=== PATIENT | male | born 1975 | race Caucasian/White ===

== ENCOUNTER 2021-08-12 09:45 | Inpatient (IN) | payer MEDICAID, OTHER ==
[~2021-08-12] VITALS: Ht 177.8 cm; Wt 93.1 kg
--- NOTE | 2021-08-12 10:03 | NUR ---
DR Chavez at the bedside for MSE. Pt states he is living in [facility] for homeless. Pt states had a positive COVID test 2 weeks ago.
[2021-08-12] MEDS ORDERED: CEFTRIAXONE 1 G in IV DEXTROSE 5% 50 ML IV ONE (10:15)
[2021-08-12] MEDS ORDERED: AZITHROMYCIN IV 500 MG in IV DEXTROSE 5% 250 ML IV ONE (10:15)
[2021-08-12] MEDS ORDERED: DEXAMETHASONE SOD PHOSPHATE 4 MG INJ IV ONE (10:15)
[2021-08-12 10:43] LABS: HEMATOCRIT 44.2 % (36.7-47.1); MEAN CORPUSCULAR VOLUME 87.1 fL (73.0-96.2); PLATELET COUNT (AUTO) 256 K/uL (152-348)
[2021-08-12 10:52] LABS: POTASSIUM 4.2 mmol/L (3.5-5.1)
[2021-08-12 11:06] LABS: BILIRUBIN,DIRECT 0.3 mg/dL (0.0-0.2); MAGNESIUM 2.3 mg/dL (1.8-2.4); PHOSPHOROUS 3.4 mg/dL (2.5-4.9); TOTAL PROTEIN, SERUM 7.5 g/dL (6.4-8.2)
[2021-08-12] MEDS ORDERED: IV NS 1000 ML 1,000 ML IV ONE (11:15)
[2021-08-12] MEDS ORDERED: ENOXAPARIN SODIUM 80 MG/0.8 ML DISP.SYRIN SQ ONE (11:30)
[2021-08-12] MEDS ORDERED: DEXAMETHASONE SOD PHOSPHATE 10 MG INJ ONE (11:31)
[2021-08-12] MEDS ORDERED: AZITHROMYCIN 500MG/ D5W 250ML IVPB **ER PYXIS ONLY IV ONE (11:31)
[2021-08-12] MEDS ORDERED: CEFTRIAXONE /D5W 50ML IVPB **ER PYXIS IV ONE (11:31)
[2021-08-12] MEDS ORDERED: ENOXAPARIN SODIUM 100 MG/ML DISP.SYRIN SQ ONE (11:45)
--- NOTE | 2021-08-12 13:26 | NUR ---
Lunch provided, pt ate w/ great appetite. VSS, no c/o pain/discomfort.
--- NOTE | 2021-08-12 14:36 | NUR ---
Patient is resting comfortably in bed with eyes closed, NAD noted.
--- NOTE | 2021-08-12 16:01 | NUR ---
RECEIVED PT FROM ER VIA WHEELCHAIR. UNDER THE CARE OF DR. KINCAID. DX: COVID PNA. BELONGING LIST DONE. ADMISSION PROCESS AND CARE PLAN INITIATED. PT ON 4L NASAL CANNULA. SAFETY AND COMFORT PROVIDED. WILL CONTINUE TO MONITOR.
[2021-08-12 16:24] VITALS: BP 133/84
[2021-08-12] MEDS ORDERED: ONDANSETRON 4 MG/2 ML VIAL IV PRN (16:30)
[2021-08-12] MEDS ORDERED: HYDROCODONE/APAP 5-325MG TABLET PO PRN (16:30)
[2021-08-12] MEDS ORDERED: MAGNESIUM HYDROXIDE 30 ML LIQUID UDC PO PRN (16:30)
[2021-08-12] MEDS ORDERED: ALBUTEROL SULFATE 8 GM HFA.AER.AD IH PRN (16:30)
--- NOTE | 2021-08-12 18:09 | NUR ---
PT IN NO ACUTE RESPIRATORY DISTRESS.PT ON 4L NASAL CANNULA. PT CAN MAKE HIS NEEDS KNOWN. IV INTACT. SAFETY AND COMFORT PROVIDED. WILL CONTINUE TO MONITOR.
[2021-08-12 20:00] VITALS: BP 112/79
[2021-08-12] MEDS: DEXAMETHASONE SOD PHOSPHATE 4 MG INJ IV SCH (20:22)
[2021-08-13] VITALS (8 sets, daily range): BP systolic 111–158; BP diastolic 60–90
[2021-08-13] MEDS: PANTOPRAZOLE SODIUM 40 MG TABLET.DR PO SCH (06:09)
--- NOTE | 2021-08-13 06:45 | NUR ---
Patient COVID 19 with PNA, no sob, no acute distress noted, will continue to monitor for patient breathing.
[2021-08-13 07:42] LABS: MEAN CORPUSCULAR HEMOGLOBIN 30.6 uug (23.8-33.4); MEAN CORPUSCULAR VOLUME 85.3 fL (73.0-96.2); PLATELET COUNT (AUTO) 297 K/uL (152-348)
[2021-08-13 08:10] LABS: BILIRUBIN,DIRECT 0.2 mg/dL (0.0-0.2); BILIRUBIN,TOTAL 0.5 mg/dL (0.2-1.0); MAGNESIUM 2.3 mg/dL (1.8-2.4); PHOSPHOROUS 2.3 mg/dL (2.5-4.9)
[2021-08-13] MEDS: DEXAMETHASONE SOD PHOSPHATE 4 MG INJ IV SCH ×2 (08:20→20:19)
[2021-08-13] MEDS: ASCORBIC ACID 500 MG TABLET PO SCH (08:20)
[2021-08-13] MEDS: ENOXAPARIN SODIUM 40 MG/0.4 ML DISP.SYRIN SQ SCH (08:20)
[2021-08-13] MEDS: CHOLECALCIFEROL 1,000 UNIT TABLET PO SCH (08:20)
[2021-08-13 09:58] LABS: CREATININE 0.9 mg/dL (0.6-1.3); POTASSIUM 4.4 mmol/L (3.5-5.1)
[2021-08-13] MEDS: AZITHROMYCIN IV 500 MG in IV DEXTROSE 5% 250 ML IV SCH (11:51)
[2021-08-13] MEDS ORDERED: SWABABLE VALVE TRANSFER SET EA MC ONE (13:38)
[2021-08-13] MEDS ORDERED: IV NORMAL SALINE 250 ML IV ONE (13:38)
[2021-08-13] MEDS ORDERED: IOHEXOL 350 100 ML INFUS..BTL ONE (13:38)
[2021-08-13] MEDS ORDERED: REMDESIVIR (CHARGED) 200 MG in IV NORMAL SALINE 210 ML IV ONE (14:00)
[2021-08-13] MEDS ORDERED: NEUTRA PHOS PACKET PO ONE (16:00)
[2021-08-13] MEDS ORDERED: LOPERAMIDE HCL 2 MG CAPSULE PO PRN (17:00)
--- NOTE | 2021-08-13 18:30 | NUR ---
Patient is alert/orientedx4, denies pain during the shift. MD ordered CTA Chest Angio, consent obtained, procedure done. Collected sputum sample for culture w/ gram stain as ordered, awaiting result. No distress identified. Frequent visual check done. Kept call light within reach. Assisted with ADLs. All needs attended. Kept environment safe. All due meds given as ordered. Will endorse to the next shift for continuity of care.
[2021-08-14 00:07] VITALS: BP 114/74
[2021-08-14 04:00] VITALS: BP 126/83
[2021-08-14 04:20] VITALS: BP 126/83
[2021-08-14] MEDS: PANTOPRAZOLE SODIUM 40 MG TABLET.DR PO SCH (06:03)
[2021-08-14 07:11] LABS: HEMATOCRIT 40.4 % (36.7-47.1); MEAN CORPUSCULAR HEMOGLOBIN 29.9 uug (23.8-33.4); MEAN CORPUSCULAR VOLUME 86.3 fL (73.0-96.2); PLATELET COUNT (AUTO) 362 K/uL (152-348)
[2021-08-14 07:29] LABS: BILIRUBIN,DIRECT 0.2 mg/dL (0.0-0.2); BILIRUBIN,TOTAL 0.5 mg/dL (0.2-1.0); CREATININE 0.8 mg/dL (0.6-1.3); MAGNESIUM 2.2 mg/dL (1.8-2.4); PHOSPHOROUS 3.7 mg/dL (2.5-4.9); TOTAL PROTEIN, SERUM 6.6 g/dL (6.4-8.2)
--- NOTE | 2021-08-14 08:00 | NUR ---
AWAKE ALERT AND ORIENTED X3 NO SS OF PAIN OR RESPIRATORY DISTRESS SATURATING 95% ON 4L NC SITTING COMFORTABLY SIDE OF BED. SR ON MONITOR
[2021-08-14] MEDS: ASCORBIC ACID 500 MG TABLET PO SCH (08:16)
[2021-08-14] MEDS: ACETAMINOPHEN 325 MG TABLET PO PRN ×2 (08:16→20:37)
[2021-08-14] MEDS: DEXAMETHASONE SOD PHOSPHATE 4 MG INJ IV SCH ×2 (08:16→20:37)
[2021-08-14] MEDS: CHOLECALCIFEROL 1,000 UNIT TABLET PO SCH (08:16)
[2021-08-14] MEDS: ENOXAPARIN SODIUM 40 MG/0.4 ML DISP.SYRIN SQ SCH (08:17)
--- NOTE | 2021-08-14 11:18 | NUR ---
RESTING COMFORTABLY, NO ACUTE CHANGE FROM MORNING ASSESSMENT SR ON MONITOR
[2021-08-14] MEDS: AZITHROMYCIN IV 500 MG in IV DEXTROSE 5% 250 ML IV SCH (11:56)
[2021-08-14 12:00] VITALS: BP 119/76
[2021-08-14] MEDS: REMDESIVIR (CHARGED) 100 MG in IV NORMAL SALINE 100 ML IV SCH (13:29)
[2021-08-14 16:00] VITALS: BP 133/82
[2021-08-14 20:20] VITALS: BP 123/69
--- NOTE | 2021-08-14 20:25 | NUR ---
Received patient sitting up on the side of the bed. AAOx4. Denies any pain. Complain of SOB. O2 sat fluctuating between 86-88%. Titrated O2 to 6LPM via NC, O2 sat up to 92%. Continue to monitor breathing. IV site on right wrist area intact and patent. COVID precaution observed. Other needs assessed and attended to. Instructed to call this nurse if he starts feeling SOB again and states understanding.
--- NOTE | 2021-08-14 20:52 | NUR ---
Patient complain of SOB again. O2 sat fluctuating between 87-90% at 6LPM of O2 via NC. Change to simple mask at 10LPM and given Ventolin Hfa Inhaler 1 puff per order. O2 saturation went up to 94%. Patient felt relief. HOB kept elevated. Other due med also given. Continue to monitor.
--- NOTE | 2021-08-14 21:25 | NUR ---
Patient remains AAOx4. Denies any SOB at this time. Remains on O2 at 10LPM via simple mask. Sinus jaren on tele at 46/min. Continue to monitor.
--- NOTE | 2021-08-14 21:40 | NUR ---
Informed ELECTRONIC ENGRAVER Nash regarding patient condition and obtain order for O2 at 10LPM via simple mask to keep O2 saturation >94%. Order noted. /Cody made aware.
--- NOTE | 2021-08-15 | NUR ---
Noted patient removing his simple mask. No signs of distress. Place back on O2 at 4LPM via NC. O2 sat at 96%. Denies any SOB when asked. Sinus Amadeo on tele at 45/min. Appears comfortable. Continue to monitor.
[2021-08-15 00:15] VITALS: BP 134/81
[2021-08-15 04:20] VITALS: BP 146/84
--- NOTE | 2021-08-15 05:59 | NUR ---
AAOx4. Denies any pain or SOB. O2 sat at 97% on O2 at 4LPM via NC. SB on tele at 52/min. No coughing noted. Afebrile. IV site on right wrist area remains intact and patent. COVID precaution maintained. Needs attended to and met. Safety measure maintained and call hayden within reached.
[2021-08-15] MEDS: PANTOPRAZOLE SODIUM 40 MG TABLET.DR PO SCH (06:10)
[2021-08-15 06:38] LABS: HEMATOCRIT 39.3 % (36.7-47.1); MEAN CORPUSCULAR HEMOGLOBIN 30.6 uug (23.8-33.4); MEAN CORPUSCULAR VOLUME 86.1 fL (73.0-96.2); PLATELET COUNT (AUTO) 406 K/uL (152-348)
[2021-08-15 07:07] LABS: BILIRUBIN,DIRECT 0.2 mg/dL (0.0-0.2); BILIRUBIN,TOTAL 0.5 mg/dL (0.2-1.0); CREATININE 0.7 mg/dL (0.6-1.3); MAGNESIUM 2.1 mg/dL (1.8-2.4); PHOSPHOROUS 3.4 mg/dL (2.5-4.9); POTASSIUM 3.9 mmol/L (3.5-5.1); TOTAL PROTEIN, SERUM 6.6 g/dL (6.4-8.2)
--- NOTE | 2021-08-15 07:30 | NUR ---
AWAKE ALERT AND ORIENTED X3 NO SS OF PAIN OR DISTRESS WITH 4L NC SATURATING 93%. SR,SB ON MONITOR
[2021-08-15] MEDS: DEXAMETHASONE SOD PHOSPHATE 4 MG INJ IV SCH ×2 (08:15→20:09)
[2021-08-15] MEDS: ACETAMINOPHEN 325 MG TABLET PO PRN (08:15)
[2021-08-15] MEDS: CHOLECALCIFEROL 1,000 UNIT TABLET PO SCH (08:15)
[2021-08-15] MEDS: ASCORBIC ACID 500 MG TABLET PO SCH (08:15)
[2021-08-15] MEDS: ENOXAPARIN SODIUM 40 MG/0.4 ML DISP.SYRIN SQ SCH (08:16)
[2021-08-15] MEDS: AZITHROMYCIN IV 500 MG in IV DEXTROSE 5% 250 ML IV SCH (11:53)
[2021-08-15 12:00] VITALS: BP 131/86
[2021-08-15] MEDS: REMDESIVIR (CHARGED) 100 MG in IV NORMAL SALINE 100 ML IV SCH (13:56)
--- NOTE | 2021-08-15 14:35 | NUR ---
CONTINUE TELE MONITORING FOR COVID, TOLERATING 4L WELL SATURATING 93% SITTING MOST OF THE SHIFT SB ON MONITOR
[2021-08-15 16:00] VITALS: BP 125/68
[2021-08-15 20:15] VITALS: BP 134/84
--- NOTE | 2021-08-15 21:08 | NUR ---
Received pt resting in bed. AAO x4. On 4L O2 via NC, saturation of 97%. No acute distress noted. Denies pain/ discomfort. Due med given as ordered. IV site flushed, patent and intact. Safety measures maintained. Call light and personal items within reach. Will continue to monitor.
[2021-08-16 00:05] VITALS: BP 121/68
[2021-08-16 04:20] VITALS: BP 116/75
--- NOTE | 2021-08-16 04:56 | NUR ---
Pt slept comfortably t/o the night. Sinus jaren on tele at 45/ min. No acute distress. No changes during the shift. Will endorse accordingly.
[2021-08-16] MEDS: PANTOPRAZOLE SODIUM 40 MG TABLET.DR PO SCH (06:08)
[2021-08-16 06:40] LABS: HEMATOCRIT 40.4 % (36.7-47.1); MEAN CORPUSCULAR HEMOGLOBIN 30.3 uug (23.8-33.4); MEAN CORPUSCULAR VOLUME 87.5 fL (73.0-96.2); PLATELET COUNT (AUTO) 438 K/uL (152-348)
[2021-08-16 06:57] LABS: ALANINE AMINOTRANSFERASE 80 U/L (16-63); ALKALINE PHOSPHATASE 98 U/L (50-136); ASPARTATE AMINOTRANSFERASE 46 U/L (15-37); BILIRUBIN,DIRECT 0.1 mg/dL (0.0-0.2); BILIRUBIN,TOTAL 0.4 mg/dL (0.2-1.0); CARBON DIOXIDE 26 mmol/L (21-32); CHLORIDE 101 mmol/L (98-107); CREATININE 0.6 mg/dL (0.6-1.3); GLUCOSE 104 mg/dL (74-106); POTASSIUM 4.2 mmol/L (3.5-5.1); TOTAL PROTEIN, SERUM 6.3 g/dL (6.4-8.2); UREA NITROGEN, BLOOD 18 mg/dL (7-18)
[2021-08-16 07:30] VITALS: BP 126/85
--- NOTE | 2021-08-16 07:30 | NUR ---
Pt received to care, awake, alert, no signs of distress. Pt is on 4L O2 on nasal canula, sat 96%. Pt denies pain. Pt is A/Ox4. Iv site is intact
[2021-08-16] MEDS: CHOLECALCIFEROL 1,000 UNIT TABLET PO SCH (09:38)
[2021-08-16] MEDS: ASCORBIC ACID 500 MG TABLET PO SCH (09:38)
[2021-08-16] MEDS: DEXAMETHASONE SOD PHOSPHATE 4 MG INJ IV SCH ×2 (09:38→20:23)
[2021-08-16] MEDS: ENOXAPARIN SODIUM 40 MG/0.4 ML DISP.SYRIN SQ SCH (09:41)
[2021-08-16 11:57] VITALS: BP 124/84
[2021-08-16] MEDS: AZITHROMYCIN IV 500 MG in IV DEXTROSE 5% 250 ML IV SCH (12:10)
[2021-08-16] MEDS: REMDESIVIR (CHARGED) 100 MG in IV NORMAL SALINE 100 ML IV SCH (13:56)
--- NOTE | 2021-08-16 15:30 | NUR ---
PT is saturates 96% on 2l of O2 with nasal canula, denies sob.
[2021-08-16 15:51] VITALS: BP 117/81
--- NOTE | 2021-08-16 18:48 | NUR ---
Pt is resting in bed, O2 canula at 2LPM. No distress noted.
[2021-08-16 20:20] VITALS: BP 114/68
--- NOTE | 2021-08-16 22:24 | NUR ---
Received pt on bed, on continuous O2 at 2L via NC. No acute distress noted. Alert and oriented x4, able to make needs known. Denies pain and discomfort at this time. All needs attended. Will continue to monitor.
[2021-08-17 00:10] VITALS: BP 126/84
[2021-08-17 04:15] VITALS: BP 123/60
[2021-08-17 05:53] LABS: HEMATOCRIT 41.4 % (36.7-47.1); MEAN CORPUSCULAR HEMOGLOBIN 30.7 uug (23.8-33.4); MEAN CORPUSCULAR VOLUME 86.7 fL (73.0-96.2); PLATELET COUNT (AUTO) 449 K/uL (152-348)
[2021-08-17 06:10] LABS: BILIRUBIN,DIRECT 0.2 mg/dL (0.0-0.2); BILIRUBIN,TOTAL 0.5 mg/dL (0.2-1.0); CREATININE 0.7 mg/dL (0.6-1.3); POTASSIUM 4.5 mmol/L (3.5-5.1); TOTAL PROTEIN, SERUM 6.5 g/dL (6.4-8.2)
[2021-08-17] MEDS: PANTOPRAZOLE SODIUM 40 MG TABLET.DR PO SCH (06:19)
--- NOTE | 2021-08-17 06:29 | NUR ---
Pt slept throughout the night, on continuous O2 at 2L via NC saturating 96%. No acute distress noted. Denies pain and discomfort at this time. All needs attended. Call light placed within reach. Frequent visual checks done. Will continue to monitor.
--- NOTE | 2021-08-17 07:30 | NUR ---
Received pt awake alert and oriented times 4, on continuous oxygen at 2L via NC, saturating 96%. No respiratory distress noted able to make needs known. Safety precautions implemented, call light placed within reach. Will continue to monitor.
[2021-08-17] MEDS: DEXAMETHASONE SOD PHOSPHATE 4 MG INJ IV SCH ×2 (08:47→20:30)
[2021-08-17] MEDS: ASCORBIC ACID 500 MG TABLET PO SCH (08:47)
[2021-08-17] MEDS: CHOLECALCIFEROL 1,000 UNIT TABLET PO SCH (08:47)
[2021-08-17] MEDS: ENOXAPARIN SODIUM 40 MG/0.4 ML DISP.SYRIN SQ SCH (08:50)
[2021-08-17 11:54] VITALS: BP 112/74
[2021-08-17] MEDS: REMDESIVIR (CHARGED) 100 MG in IV NORMAL SALINE 100 ML IV SCH (13:57)
[2021-08-17 15:14] VITALS: BP 103/69
--- NOTE | 2021-08-17 18:20 | NUR ---
Patient left resting in bed. No sign of distress noted at this time. Gave all medications as ordered. Patient is currently on room air and saturating at 95%. Safety measures are in place. Will endorse to oncoming nurse.
[2021-08-17 20:32] VITALS: BP 102/71
--- NOTE | 2021-08-17 21:51 | NUR ---
Pt sitting in bed, watching TV, o acute distress noted. Axox4, Denies any pain or discomfort at the moment. No respiratory distress, no SOB noted on RA saturating @ 94-95%.No cough noted. Denies SOB. VSS. On tele sinus jaren @ 40-45/ min, resting comfortably.LFA 20G heplock patent and intact, flushed. All due medications administered and tolerated well.Safety and covid precautions maintained. Call light and all personal item within pt reach. Will continue to monitor throughout the night.
[2021-08-18 00:10] VITALS: BP 103/72
[2021-08-18 04:37] VITALS: BP 110/71
[2021-08-18] MEDS: PANTOPRAZOLE SODIUM 40 MG TABLET.DR PO SCH (05:58)
--- NOTE | 2021-08-18 07:46 | NUR ---
received sitting by the window, no acute distress. denies chest pain or sob. comfortable on room air 95-96%. iv intact. safety measures in place. call light in reach. will continue to monitor.
[2021-08-18] MEDS: DEXAMETHASONE SOD PHOSPHATE 4 MG INJ IV SCH (08:55)
[2021-08-18] MEDS: ENOXAPARIN SODIUM 40 MG/0.4 ML DISP.SYRIN SQ SCH (08:56)
[2021-08-18] MEDS: CHOLECALCIFEROL 1,000 UNIT TABLET PO SCH (08:56)
[2021-08-18] MEDS: ASCORBIC ACID 500 MG TABLET PO SCH (08:56)
[2021-08-18] MEDS ORDERED: DEXA4TAB PO (09:04)
[2021-08-18] MEDS ORDERED: ASPI81TA31 PO (09:04)
[2021-08-18 11:21] VITALS: BP 108/72
--- NOTE | 2021-08-18 11:40 | NUR ---
gave update to shayna recio
--- NOTE | 2021-08-18 14:07 | NUR ---
no acute distress. was seen by shayna shen this morning and agreed with discharge back to [facility]. discharge instructions relayed to patient and he verbalized understanding. denies chest pain or sob.
--- NOTE | 2021-08-18 14:24 | NUR ---
patient is for discharge. per shayna shen ok to dc telemetry.
[2021-08-18 15:24] VITALS: BP 105/69
--- NOTE | 2021-08-18 15:25 | NUR ---
picked up by [facility] via [facility] for dc back to [facility]. alert and oriented x4. no acute distress. stable on room air spo2 93%. denies chest pain or sob. iv access removed. medication prescription given to patient. belongings list completed.
== END 2021-08-18 15:25 | disposition home or self-care (01) | DRG 720 ==
LOC: ER 09:45 → TELE3 15:13
PROVIDERS: ADMIT Internal Medicine; ATTEND Nurse Practitioner Acute Care
PROC: XW033E5 Introduction of Remdesivir Anti-infective into Peripheral Vein, Percutaneous Approach, New Technology Group 5 (ICD-10-PCS; principal; 2021-08-13)
DX: A41.89 Other specified sepsis (principal); J96.01 Acute respiratory failure with hypoxia; J12.82 Pneumonia due to coronavirus disease 2019; E44.0 Moderate protein-calorie malnutrition; U07.1 COVID-19; J15.9 Unspecified bacterial pneumonia; E87.1 Hypo-osmolality and hyponatremia; E86.1 Hypovolemia; Z59.0 Homelessness; Z83.3 Family history of diabetes mellitus; R74.01 Elevation of levels of liver transaminase levels; E66.9 Obesity, unspecified; Z68.29 Body mass index [BMI] 29.0-29.9, adult; F17.210 Nicotine dependence, cigarettes, uncomplicated; G47.33 Obstructive sleep apnea (adult) (pediatric); J40 Bronchitis, not specified as acute or chronic
CPT/HCPCS: 36415; 70030-TC; 71045; 71275; 83605; 83615; 83735; 84100; 85025; 85610; 85730; 86140; 87040; 87070; 93005; A4663; G0378; J0456; J0696; J1100; J1650; J3490; J3535; J7050; J7060; Q9967